=== PATIENT | female | born 1950 | race Caucasian/White ===

== ENCOUNTER 2016-10-24 08:30 | Outpatient (CLI) | payer OTHER ==
[2014-09-06 15:29] VITALS: O2SAT 95
== END 2016-10-24 08:31 | disposition home or self-care (01) | DRG 556 ==
LOC: CONVCARE 08:30
PROVIDERS: ATTEND Orthopaedic Surgery
DX: M79.672 Pain in left foot (principal)
CPT/HCPCS: 73630

== ENCOUNTER 2016-12-19 09:02 | Day surgery (SDC) | payer OTHER ==
[~2016-12-19 09:02] MED LIST: FENTANYL 100MCG/2ML SOL ONE; LIDOCAINE HCL 1% MPF SOL ONE; MIDAZOLAM 2 MG/2 ML SOL ONE; PROPOFOL 500 MG/50 ML EMU IV ONE
[2016-12-19] MEDS ORDERED: BUPIVACAINE HCL 0.25% MPF 10 ML SOL INFIL ONE ×2 (09:26→09:27)
[2016-12-19] MEDS ORDERED: LIDOCAINE HCL 1% MPF SOL ONE (09:26)
[2016-12-19] MEDS ORDERED: BACITRACIN 500 U/GM OIN TOP ONE (11:45)
[2016-12-19] MEDS ORDERED: KETOROLAC TROMETHAMINE 30 MG/ML SOL ONE (12:00)
[2016-12-19] MEDS: HYDROMORPHONE 1 MG/ML SYRINGE ONE ×2 (12:20→12:36)
[2016-12-19 13:12] VITALS: BP 140/56; PULSE 62; RESP 24; TEMP 97.1; O2SAT 93
== END 2016-12-19 14:00 | disposition home or self-care (01) | DRG 566 ==
LOC: SURG 09:02
PROVIDERS: ATTEND Orthopaedic Surgery
DX: M20.12 Hallux valgus (acquired), left foot (principal); M20.42 Other hammer toe(s) (acquired), left foot; M21.612 Bunion of left foot
CPT/HCPCS: 73620; 76000; J0690; J1885; J2250; J3010; L3260; J1170; J2001; J2704

== ENCOUNTER 2017-01-02 10:16 | Outpatient (CLI) | payer OTHER ==
[2016-12-19 13:12] VITALS: O2SAT 93
== END 2017-01-02 10:17 | disposition home or self-care (01) | DRG 951 ==
LOC: CONVCARE 10:16
PROVIDERS: ATTEND Orthopaedic Surgery
DX: Z98.890 Other specified postprocedural states (principal)
CPT/HCPCS: 73620

== ENCOUNTER 2017-02-06 13:02 | Outpatient (CLI) | payer OTHER ==
[2016-12-19 13:12] VITALS: O2SAT 93
== END 2017-02-06 13:03 | disposition home or self-care (01) | DRG 561 ==
LOC: CONVCARE 13:02
PROVIDERS: ATTEND Orthopaedic Surgery
DX: Z47.89 Encounter for other orthopedic aftercare (principal); T81.4XXD Infection following a procedure, subsequent encounter
CPT/HCPCS: 73620

== ENCOUNTER 2017-03-06 13:21 | Outpatient (CLI) | payer OTHER ==
[2016-12-19 13:12] VITALS: O2SAT 93
== END 2017-03-06 13:22 | disposition home or self-care (01) | DRG 561 ==
LOC: CONVCARE 13:21
PROVIDERS: ATTEND Orthopaedic Surgery
DX: Z47.89 Encounter for other orthopedic aftercare (principal); Z98.890 Other specified postprocedural states
CPT/HCPCS: 73630

== ENCOUNTER 2017-06-19 13:34 | Outpatient (CLI) | payer OTHER ==
[2016-12-19 13:12] VITALS: O2SAT 93
== END 2017-06-19 13:35 | disposition home or self-care (01) | DRG 556 ==
LOC: CONVCARE 13:34
PROVIDERS: ATTEND Orthopaedic Surgery
DX: M25.571 Pain in right ankle and joints of right foot (principal)
CPT/HCPCS: 73610